=== PATIENT | female | born 1995 | race Caucasian/White ===

== ENCOUNTER → 2018-07-09 | Outpatient (CLI) | payer BC ==
[2018-07-09 16:00] LABS: PLATELET COUNT, AUTOMATED 244 K/uL (150-450)
--- NOTE | 2018-07-09 16:37 | RADIOLOGY IMAGING REPORT ---
FACILITY: [facility] [place] PATIENT NAME: Gissell Wesley : 1995 MR: [id number] V: [id number] EXAM DATE: ORDERING PHYSICIAN: SYBIL SEN TECHNOLOGIST: Location: [facility] [place] Patient: Gissell Wesley : 1995 Visit/Account:[id number] Date of Sevice: 07/09/2018 Transvaginal pelvic ultrasound INDICATION: Right lower abdominal and pelvic pain. COMPARISON: None Available FINDINGS: Uterus measures 6.7 x 2.9 x 5.6 cm. The uterus is anteverted and homogeneous. No focal abnormality. Double wall endometrial stripe measures 3.8 mm and homogeneous. No discrete fluid or focal normality. IUD appears to be in good position. There is mild amount of free fluid in the cul-de-sac. Likely physiologic. Urinary bladder is empty. Pelvic vessels appear unremarkable on this examination. Right ovary measures 2.9 x 2.1 x 3.6 cm and shows normal blood flow and contains several small follic les. Left ovary measures 3.4 x 1.7 x 3.1 cm and shows normal blood flow and contains several small follicl es. No adnexal masses. IMPRESSION: 1. Unremarkable pelvic ultrasound. IUD appears to be in good position. Report Dictated By: David Patel at 07/09/2018 4:30 PM Report E-Signed By: David Patel at 07/09/2018 4:32 PM WSN:[id number]
--- NOTE | 2018-07-09 16:42 | RADIOLOGY IMAGING REPORT ---
FACILITY: [facility] PATIENT NAME: Gissell Wesley : 1995 MR: [id number] V: [id number] EXAM DATE: ORDERING PHYSICIAN: SYBIL SEN TECHNOLOGIST: Location: [facility] [place] Patient: Gissell Wesley : 1995 Visit/Account:[id number] Date of Sevice: 07/09/2018 RIGHT LOWER QUADRANT ultrasound INDICATION: Right lower abdominal pain. COMPARISON: None available FINDINGS: Transabdominal ultrasound images of the right lower quadrant. There is a blind ending tub ular structure seen in the right lower quadrant consistent with an appendix. This is not distended or dilated measuring 3 mm in width. No surrounding fluid or inflammation. No increased blood flow. No f luid or fluid collection. No enlarged lymph node or mass. IMPRESSION: Normal appendix. No focal normality. Report Dictated By: David Patel at 07/09/2018 4:36 PM Report E-Signed By: David Patel at 07/09/2018 4:38 PM WSN:[id number]
== END ==
LOC: US 14:30
PROVIDERS: ATTEND Nurse Practitioner Family
DX: R19.7 Diarrhea, unspecified (principal); R10.31 Right lower quadrant pain; Z97.5 Presence of (intrauterine) contraceptive device
CPT/HCPCS: 36415; 76705; 76830; 82040; 82247; 82310; 82374; 82435; 82565; 82947; 84075; 84132; 84155; 84295; 84450; 84460; 84520; 85025; 85651